=== PATIENT | male | born 1965 | race African-American/Black ===

== ENCOUNTER 2020-05-26 12:50 | Emergency (ER) | payer SELFPAY ==
[2020-05-26] MEDS ORDERED: Sodium Chloride 0.9% 10 ML Syringe FLUSH PRN ×2 (13:17→14:22)
--- NOTE | 2020-05-26 14:06 | EDM.PDOC ---
ED HPI GENERAL MEDICAL PROBLEM - General Chief Complaint: General Stated Complaint: SOB, BODY PAIN,CHEST PAIN Time Seen by Provider: 05/26/20 13:09 Source of Information: Reports: Patient History Limitations: Reports: No Limitations - History of Present Illness INITIAL COMMENTS - FREE TEXT/NARRATIVE: Patient is a 54-year-old male presenting to the emergency department with comp laints of a one-week history of worsening as of breath, body aches, intermittent chest pains and intermittent cough for the last week. Patient states that he is chronically short of breath since he had an MN about 3 years ago, however he finds that he has been more so for the last week. He also complains of intermittent "twinges "of chest pain over the last few days. His shortness of breath does not worsen with these and he denies any diaphoresis. Denies any known fevers, chills, nausea, vomiting, or diarrhea. Patient is here from [place] and has been without his home medications for approximately the last month. He is unsure of what his allergies are. He denies any history of congestive heart failure to his knowledge. He states he has had 1 stent in the past after having an MN with a 90% blockage. On triage, patient was found to be mildly tachycardic at 115, tachypneic at 28 respirations per minute. Blood pressure was stable at 138/97. Temp 97.8. Oxygen saturation was 94% on room air. Treatments PRIMARY SPECIAL EDUCATOR: Reports: Other (see below) Chest Pain Score (Numeric/FACES): 6 - Related Data Allergies Allergy/AdvReac Type Severity Reaction Status Date / Time clopidogrel [From Plavix] Allergy Anaphylactic Verified 05/26/20 14:36 Shock lisinopril Allergy Anaphylactic Verified 05/26/20 14:36 Shock metoprolol Allergy Facial Verified 05/26/20 14:36 Swelling Home Meds: Home Meds Aspirin 81 mg PO DAILY 05/26/20 [History] Cyanocobalamin (Vitamin B-12) [Vitamin B-12] 1,000 mcg PO DAILY 05/26/20 [History] Ferrous Sulfate 325 mg PO DAILY 05/26/20 [History] Folic Acid 1 mg PO DAILY 05/26/20 [History] Multivitamin [Multivitamins] 1 cap PO DAILY 05/26/20 [History] Pravastatin [Pravachol] 20 mg PO BEDTIME 05/26/20 [History] Triamterene/Hydrochlorothiazid [Triamterene-HCTZ 37.5-25 MG] 1 cap PO DAILY 05/26/20 [History] Past Medical History HEENT History: Reports: Other (See Below) Other HEENT History: pt has trouble talking as in stuttering. Cardiovascular History: Reports: MN, Stents Musculoskeletal History: Reports: Other (See Below) Other Musculoskeletal History: right hand fracture - Past Surgical History GI Surgical History: Reports: Appendectomy Social & Family History - Tobacco Use Smoking Status *Q: Current Every Day Smoker Years of Tobacco use: 30 Packs/Tins Daily: 0.3 - Caffeine Use Caffeine Use: Reports: Soda, Tea - Recreational Drug Use Recreational Drug Use: No ED ROS GENERAL - Review of Systems Review Of Systems: See Below Constitutional: Reports: No Symptoms, Fatigue. Denies: Fever, Chills, Weakness HEENT: Reports: No Symptoms Respiratory: Reports: Shortness of Breath, Cough. Denies: Wheezing Cardiovascular: Reports: Chest Pain. Denies: Lightheadedness, Syncope Endocrine: Reports: No Symptoms GI/Abdominal: Reports: No Symptoms. Denies: Abdominal Pain, Diarrhea, Nausea, Vomiting : Reports: No Symptoms Musculoskeletal: Reports: No Symptoms Skin: Reports: No Symptoms Neurological: Reports: No Symptoms. Denies: Dizziness, Headache Psychiatric: Reports: No Symptoms Hematologic/Lymphatic: Reports: No Symptoms Immunologic: Reports: No Symptoms ED EXAM, GENERAL - Physical Exam Exam: See Below Exam Limited By: No Limitations General Appearance: Alert, WD/WN, No Apparent Distress Respiratory/Chest: No Respiratory Distress, Lungs Clear, Normal Breath Sounds, No Accessory Muscle Use, Chest Non-Tender Cardiovascular: Normal Peripheral Pulses, Regular Rate, Rhythm, No Edema, No Gallop, No JVD, No Murmur, No Rub, Tachycardia (mild) GI/Abdominal: Normal Bowel Sounds, Soft, Non-Tender, No Organomegaly, No Distention, No Abnormal Bruit, No Mass Extremities: Normal Inspection, Normal Range of Motion, Non-Tender, Normal Capillary Refill, No Pedal Edema Neurological: Alert, Oriented, CN II-XII Intact, Normal Cognition, Normal Gait, Normal Reflexes, No Motor/Sensory Deficits, Other (Chronic stutter) Psychiatric: Normal Affect, Normal Mood Skin Exam: Warm, Dry, Intact, Normal Color, No Rash EKG INTERPRETATION EKG Date: 05/26/20 Time: 13:01 Rhythm: NSR Rate (Beats/Min): 120 Phillips: Normal P-Wave: Present QRS: Normal ST-T: Normal QT: Prolonged (minimally) Course - Vital Signs Last Recorded V/S: Last Vital Signs Temp 97.8 F 05/26/20 13:09 Pulse 99 05/26/20 17:05 Resp 19 05/26/20 17:05 BP 132/89 05/26/20 17:05 Pulse Ox 98 05/26/20 17:05 - Orders/Labs/Meds Orders: Active Orders 24 hr Category Date Time Status CULTURE BLOOD [BC] Stat Lab 05/26/20 13:40 Received CULTURE BLOOD [BC] Stat Lab 05/26/20 13:55 Received Blood Culture x2 Reflex Set [OM.PC] Stat Oth 05/26/20 13:21 Ordered Peripheral IV Insertion Adult [OM.PC] Stat Oth 05/26/20 13:17 Ordered Labs: Laboratory Tests 05/26/20 05/26/20 05/26/20 Range/Units 13:05 13:05 13:05 WBC 5.29 (4.23-9.07) K/mm3 RBC 4.57 L (4.63-6.08) M/mm3 Hgb 8.7 L (13.7-17.5) gm/dl Hct 31.7 L (40.1-51.0) % MCV 69.4 L (79.0-92.2) fl MCH 19.0 L (25.7-32.2) pg MCHC 27.4 L (32.2-35.5) g/dl RDW Std Deviation 47.5 H (35.1-43.9) fL Plt Count 215 (163-337) K/mm3 MPV 10.3 (9.4-12.3) fl Neut % (Auto) 56.9 (34.0-67.9) % Lymph % (Auto) 30.6 (21.8-53.1) % Edmunds % (Auto) 11.5 (5.3-12.2) % Eos % (Auto) 0.6 L (0.8-7.0) Baso % (Auto) 0.2 (0.1-1.2) % Neut # (Auto) 3.01 (1.78-5.38) K/mm3 Lymph # (Auto) 1.62 (1.32-3.57) K/mm3 Edmunds # (Auto) 0.61 (0.30-0.82) K/mm3 Eos # (Auto) 0.03 L (0.04-0.54) K/mm3 Baso # (Auto) 0.01 (0.01-0.08) K/mm3 Manual Slide Review Abnormal smear D-Dimer, Quantitative 1.10 H (0.19-0.50) mg/L Sodium 136 (136-145) mEq/L Potassium 3.9 (3.5-5.1) mEq/L Chloride 99 (98-107) mEq/L Carbon Dioxide 24 (21-32) mEq/L Anion Gap 16.9 H (5-15) BUN 9 (7-18) mg/dL Creatinine 0.9 (0.7-1.3) mg/dL Est Cr Clr Drug Dosing 106.04 mL/min Estimated GFR (MDRD) > 60 (>60) mL/min BUN/Creatinine Ratio 10.0 L (14-18) Glucose 115 H (74-106) mg/dL Lactic Acid (0.4-2.0) mmol/L Calcium 8.5 (8.5-10.1) mg/dL Iron (65-175) ug/dL Ferritin (26-388) ng/ml Total Bilirubin 0.5 (0.2-1.0) mg/dL AST 38 H (15-37) U/L ALT 55 (16-63) U/L Alkaline Phosphatase 74 (46-116) U/L Lactate Dehydrogenase (85-227) U/L Troponin I 0.019 (0.00-0.056) ng/mL C-Reactive Protein 4.7 H* (<1.0) mg/dL NT-Pro-B Natriuret Pep (0-125) pg/mL Total Protein 8.5 H (6.4-8.2) g/dl Albumin 3.6 (3.4-5.0) g/dl Globulin 4.9 gm/dL Albumin/Globulin Ratio 0.7 L (1-2) SARS Virus RNA (PCR) (NEGATIVE) 05/26/20 05/26/20 05/26/20 Range/Units 13:05 13:05 13:05 WBC (4.23-9.07) K/mm3 RBC (4.63-6.08) M/mm3 Hgb (13.7-17.5) gm/dl Hct (40.1-51.0) % MCV (79.0-92.2) fl MCH (25.7-32.2) pg MCHC (32.2-35.5) g/dl RDW Std Deviation (35.1-43.9) fL Plt Count (163-337) K/mm3 MPV (9.4-12.3) fl Neut % (Auto) (34.0-67.9) % Lymph % (Auto) (21.8-53.1) % Edmunds % (Auto) (5.3-12.2) % Eos % (Auto) (0.8-7.0) Baso % (Auto) (0.1-1.2) % Neut # (Auto) (1.78-5.38) K/mm3 Lymph # (Auto) (1.32-3.57) K/mm3 Edmunds # (Auto) (0.30-0.82) K/mm3 Eos # (Auto) (0.04-0.54) K/mm3 Baso # (Auto) (0.01-0.08) K/mm3 Manual Slide Review D-Dimer, Quantitative (0.19-0.50) mg/L Sodium (136-145) mEq/L Potassium (3.5-5.1) mEq/L Chloride (98-107) mEq/L Carbon Dioxide (21-32) mEq/L Anion Gap (5-15) BUN (7-18) mg/dL Creatinine (0.7-1.3) mg/dL Est Cr Clr Drug Dosing mL/min Estimated GFR (MDRD) (>60) mL/min BUN/Creatinine Ratio (14-18) Glucose (74-106) mg/dL Lactic Acid (0.4-2.0) mmol/L Calcium (8.5-10.1) mg/dL Iron (65-175) ug/dL Ferritin 25 L (26-388) ng/ml Total Bilirubin (0.2-1.0) mg/dL AST (15-37) U/L ALT (16-63) U/L Alkaline Phosphatase (46-116) U/L Lactate Dehydrogenase 241 H (85-227) U/L Troponin I (0.00-0.056) ng/mL C-Reactive Protein (<1.0) mg/dL NT-Pro-B Natriuret Pep 183 H (0-125) pg/mL Total Protein (6.4-8.2) g/dl Albumin (3.4-5.0) g/dl Globulin gm/dL Albumin/Globulin Ratio (1-2) SARS Virus RNA (PCR) (NEGATIVE) 05/26/20 05/26/20 05/26/20 Range/Units 13:05 13:37 13:55 WBC (4.23-9.07) K/mm3 RBC (4.63-6.08) M/mm3 Hgb (13.7-17.5) gm/dl Hct (40.1-51.0) % MCV (79.0-92.2) fl MCH (25.7-32.2) pg MCHC (32.2-35.5) g/dl RDW Std Deviation (35.1-43.9) fL Plt Count (163-337) K/mm3 MPV (9.4-12.3) fl Neut % (Auto) (34.0-67.9) % Lymph % (Auto) (21.8-53.1) % Edmunds % (Auto) (5.3-12.2) % Eos % (Auto) (0.8-7.0) Baso % (Auto) (0.1-1.2) % Neut # (Auto) (1.78-5.38) K/mm3 Lymph # (Auto) (1.32-3.57) K/mm3 Edmunds # (Auto) (0.30-0.82) K/mm3 Eos # (Auto) (0.04-0.54) K/mm3 Baso # (Auto) (0.01-0.08) K/mm3 Manual Slide Review D-Dimer, Quantitative (0.19-0.50) mg/L Sodium (136-145) mEq/L Potassium (3.5-5.1) mEq/L Chloride (98-107) mEq/L Carbon Dioxide (21-32) mEq/L Anion Gap (5-15) BUN (7-18) mg/dL Creatinine (0.7-1.3) mg/dL Est Cr Clr Drug Dosing mL/min Estimated GFR (MDRD) (>60) mL/min BUN/Creatinine Ratio (14-18) Glucose (74-106) mg/dL Lactic Acid 1.1 (0.4-2.0) mmol/L Calcium (8.5-10.1) mg/dL Iron 15 L (65-175) ug/dL Ferritin (26-388) ng/ml Total Bilirubin (0.2-1.0) mg/dL AST (15-37) U/L ALT (16-63) U/L Alkaline Phosphatase (46-116) U/L Lactate Dehydrogenase (85-227) U/L Troponin I (0.00-0.056) ng/mL C-Reactive Protein (<1.0) mg/dL NT-Pro-B Natriuret Pep (0-125) pg/mL Total Protein (6.4-8.2) g/dl Albumin (3.4-5.0) g/dl Globulin gm/dL Albumin/Globulin Ratio (1-2) SARS Virus RNA (PCR) Positive H (NEGATIVE) Meds: Medications Discontinued Medications Generic Name Dose Route Start Last Admin Trade Name Freq PRN Reason Stop Dose Admin Lactated Ringer's 1,000 mls @ 100 mls/hr 05/26/20 14:15 05/26/20 15:00 Ringers, Lactated IV 100 mls/hr ASDIRECTED AGNES Administration Sodium Chloride 100 mls @ 60 mls/hr 05/26/20 14:30 05/26/20 15:04 Normal Saline IV 60 mls/hr ASDIRECTED AGNES Administration Iopamidol 100 ml 05/26/20 14:22 05/26/20 15:04 Isovue-370 (76%) IVPUSH 05/26/20 14:23 100 ml ONETIME ONE Administration Iopamidol 100 ml 05/26/20 15:05 05/26/20 15:05 Isovue-370 (76%) IVPUSH 05/26/20 15:06 100 ml ONETIME ONE Administration Sodium Chloride 10 ml 05/26/20 13:17 05/26/20 13:26 Saline Flush FLUSH 10 ml ASDIRECTED PRN Administration Keep Vein Open Sodium Chloride 10 ml 09/04/20 14:22 05/26/20 15:04 Saline Flush FLUSH 10 ml ONETIME PRN Administration Keep Vein Open - Re-Assessments/Exams Free Text/Narrative Re-Assessment/Exam: 05/26/20 1415 Hematology was significant for hemoglobin low at 8.7, d-dimer elevated at 1.1, anion gap 16.9, iron low at 15, ferritin low at 25, LDH slightly elevated at 241, troponin negative at 0.019, CRP 4.7, BNP 183, patient is COVID positive. There was nothing acute seen on the chest x-ray. I have ordered a CT angiogram of the chest to rule out PEs. 05/26/20 16:32 CT angiogram of the chest showed patchy interstitial changes on both sides of the chest presumably represent multifocal pneumonia please exclude any symptoms of viral infection. There was no findings of a PE. Patient's oxygen saturation has been 98 to 100% on room air since his arrival. Heart rate 95-100 while at rest. Blood pressures have been stable. Last blood pressure 141/79. He is still mildly tachypneic at 25 to 28 breaths/min while at rest. Discussed with patient that he should start taking an iron supplement as he has iron deficiency anemia. At this point he is stable and oxygen saturations are normal. We will discharge him home with return precautions. Discussed that if he feels that he is getting any worse, he should return to ER for reevaluation. He verbalized understanding of this. Discharge instructions as documented. Departure - Departure Time of Disposition: 16:32 Disposition: Home, Self-Care 01 Condition: Good Clinical Impression: COVID-19 Iron deficiency anemia Qualifiers: Iron deficiency anemia type: unspecified iron deficiency Qualified Code(s): D50.9 - Iron deficiency anemia, unspecified - Discharge Information *PRESCRIPTION DRUG MONITORING PROGRAM REVIEWED*: No *COPY OF PRESCRIPTION DRUG MONITORING REPORT IN PATIENT ASHKAN: No Instructions: COVID-19 Frequently Asked Questions, COVID-19 Referrals: PCP,None [Primary Care Provider] - Forms: ED Department Discharge Additional Instructions: You were seen in the emergency department today for increasing shortness of breath, body aches, and intermittent chest pains. Your work-up included blood work, an EKG of your heart, a chest x-ray, and a CT angiogram of your chest. Results came back positive for COVID-19. Your hemoglobin was also found to be low at 8.7. Your iron and ferritin levels are also quite low indicating that you are likely suffering from iron deficiency anemia. While in the ER, your oxygen saturations were stable at 98 to 100%. Your other vital signs were also stable. Your CT angiogram of your chest did show some mild areas of viral pneumonia, but no blood clots in your lungs. I would recommend that you go home and rest. It would be helpful to purchase an [id number] pulse oximetry to monitor your home oxygen saturation. Recommend that you start taking [id number] iron supplement 325 mg daily. If you feel like your symptoms are worsening or if your oxygen saturation is consistently below 92% on your home pulse oximetry, please return to the emergency department for reevaluation. Sepsis Event Note (ED) - Evaluation Sepsis Screening Result: No Definite Risk - My Orders Last 24 Hours: My Active Orders 05/26/20 13:17 Peripheral IV Insertion Adult [OM.PC] Stat 05/26/20 13:21 Blood Culture x2 Reflex Set [OM.PC] Stat 05/26/20 13:40 CULTURE BLOOD [BC] Stat 05/26/20 13:55 CULTURE BLOOD [BC] Stat - Assessment/Plan Last 24 Hours: My Active Orders 05/26/20 13:17 Peripheral IV Insertion Adult [OM.PC] Stat 05/26/20 13:21 Blood Culture x2 Reflex Set [OM.PC] Stat 05/26/20 13:40 CULTURE BLOOD [BC] Stat 05/26/20 13:55 CULTURE BLOOD [BC] Stat
[2020-05-26] MEDS ORDERED: Lactated Ringers 1,000 ML IV SCH (14:15)
[2020-05-26] MEDS ORDERED: Iopamidol 755 Mg/ML 100 ML Bottle IVPUSH ONE ×2 (14:22→15:05)
[2020-05-26] MEDS ORDERED: Sodium Chloride 0.9% 100 ML IV SCH (14:30)
--- NOTE | 2020-05-26 15:51 | CR ---
Chest: Frontal view of the chest was obtained. Comparison: No prior chest imaging. Heart size and mediastinum are normal. Lungs are clear with no acute parenchymal change. Bony structures are grossly intact. Impression: 1. Nothing acute is seen on frontal chest x-ray. Diagnostic code #1 Study was dictated in MDT
--- NOTE | 2020-05-26 15:51 | CT ---
CT chest Technique: Multiple axial sections through the chest were obtained. Intravenous contrast was utilized. Study performed as part of management protocol. Findings: Pulmonary arteries are moderately well-opacified. No filling defects are seen to indicate pulmonary embolism. Moderate coronary artery calcification is noted. Aorta shows no aneurysm or dissection. Mediastinum and hilar regions show no adenopathy. No axillary adenopathy seen. No pericardial thickening is noted. Visualized upper abdominal structures shows a nodule within the right adrenal gland which shows some negative Hounsfield unit measurements and most likely is due to a adrenal adenoma measuring 2.0 cm in size. Patchy interstitial change is noted within the perihilar regions on both sides as well as more peripherally within both lung bases as well as within the right middle lobe. Impression: 1. Patchy interstitial change on both sides of chest. Findings presumably represent multifocal pneumonia. Please exclude any symptoms of viral infection. 2. No findings of pulmonary embolism. 3. Other findings as noted above which are nonacute. Diagnostic code #3 Study was dictated in MDT
== END 2020-05-26 17:05 | disposition home or self-care (01) ==
LOC: JD.ED 12:50
DX: U07.1 COVID-19 (principal); D50.9 Iron deficiency anemia, unspecified; I25.2 Old myocardial infarction; F17.210 Nicotine dependence, cigarettes, uncomplicated; Z88.8 Allergy status to other drugs, medicaments and biological substances; Z79.82 Long term (current) use of aspirin; Z79.899 Other long term (current) drug therapy
CPT/HCPCS: 36415; 71045; 71275; 80053; 82728; 83540; 83605; 83615; 83880; 84484; 85025; 85379; 86140; 87040; 87635; 93005; 96360; 96361; 99285; J7050; J7120; Q9967; 93010; 99283; U0002

== ENCOUNTER 2021-11-27 12:50 | Observation (INO) | payer MEDICAID ==
[2021-11-27] MEDS ORDERED: Sodium Chloride 0.9% 10 ML Syringe FLUSH PRN (13:57)
[2021-11-27] MEDS ORDERED: Sodium Chloride 0.9% 250 ML IV SCH (16:18)
[2021-11-27 16:20] LABS: CORONAVIRUS COVID-19 NAA NEGATIVE (NEGATIVE)
[2021-11-27] MEDS ORDERED: Acetaminophen/oxyCODONE 325-5 MG Tab PO ONE (17:58)
[2021-11-27] MEDS ORDERED: Acetaminophen 325 MG Tab PO PRN (18:41)
[2021-11-27] MEDS ORDERED: hydrALAZINE 20 MG/ML SDV IVPUSH PRN (20:14)
[2021-11-28] MEDS ORDERED: Hydrochlorothiazide/Triamterene 25-37.5 MG Cap PO SCH (09:00)
[2021-11-28] MEDS ORDERED: Ferrous Sulfate 324 MG Tab.EC PO SCH (09:00)
[2021-11-28] MEDS ORDERED: Aspirin 81 MG Tab.Chew PO SCH (12:00)
== END 2021-11-28 16:24 | disposition home or self-care (01) ==
LOC: JD.ED 12:50 → JD.MS 17:43
PROVIDERS: ADMIT Emergency Medicine; ATTEND Internal Medicine
DX: I25.110 Atherosclerotic heart disease of native coronary artery with unstable angina pectoris (principal); I24.8 Other forms of acute ischemic heart disease; F17.210 Nicotine dependence, cigarettes, uncomplicated; D63.1 Anemia in chronic kidney disease; D50.9 Iron deficiency anemia, unspecified; I73.9 Peripheral vascular disease, unspecified; I25.2 Old myocardial infarction; Z95.5 Presence of coronary angioplasty implant and graft; Z88.8 Allergy status to other drugs, medicaments and biological substances; Z79.82 Long term (current) use of aspirin; Z79.899 Other long term (current) drug therapy; Z90.49 Acquired absence of other specified parts of digestive tract; Z20.822 Contact with and (suspected) exposure to COVID-19
CPT/HCPCS: 0240U; 36415; 36430; 71045; 80053; 81001; 82553; 82728; 83540; 83735; 83880; 84466; 84484; 85018; 85025; 85610; 85730; 86140; 86850; 86900; 86901; 86922; 93005; 99285; A9270; G0378; J7050; P9016; 93010

== ENCOUNTER 2022-05-15 12:22 | Emergency (ER) | payer MEDICAID ==
[2022-05-15] MEDS ORDERED: Sodium Chloride 0.9% 10 ML Syringe FLUSH PRN (12:48)
[2022-05-15] MEDS ORDERED: Metoprolol Tartrate 25 MG Tab PO ONE (13:32)
== END 2022-05-15 16:25 | disposition home or self-care (01) ==
LOC: JD.ED 12:22
DX: N30.01 Acute cystitis with hematuria (principal); M54.41 Lumbago with sciatica, right side; M54.42 Lumbago with sciatica, left side; I25.2 Old myocardial infarction; F17.210 Nicotine dependence, cigarettes, uncomplicated; Z95.5 Presence of coronary angioplasty implant and graft; Z88.8 Allergy status to other drugs, medicaments and biological substances; Z79.82 Long term (current) use of aspirin; Z79.899 Other long term (current) drug therapy
CPT/HCPCS: 36415; 71046; 80053; 81001; 83605; 85025; 86140; 87040; 87086; 93005; 99285; A9270; J3490; 93010; 99283